=== PATIENT | male | born 1955 | race American Indian/Alaskan Native ===

== ENCOUNTER 2017-08-23 05:53 | Day surgery (SDC) | payer BC ==
[2017-08-19 10:58] LABS: Basophils % (Auto) 0.6 % (0.0-1.8); Eosinophils % (Auto) 1.5 % (0.0-4.3); Hematocrit 41.2 % (35.5-45.6); Hemoglobin 13.6 gm/dl (11.8-15.2); Mean Corpuscular HGB Conc 33 % (32-34); Mean Corpuscular Hemoglobin 29 pg (28-32); Mean Corpuscular Volume 86 fl (84-94); Platelet Count 192 K/mm3 (140-440); Red Blood Count 4.77 M/mm3 (3.65-5.03); Red Cell Distribution Width 14.8 % (13.2-15.2); White Blood Count 6.1 K/mm3 (4.5-11.0)
--- NOTE | 2017-08-19 11:10 | Anesthesia Consultation ---
Anesthesia Consult and Med Hx Date of service: 08/19/17 - Airway Anesthetic Teeth Evaluation: Good ROM Head & Neck: Adequate Mental/Hyoid Distance: Adequate Mallampati Class: Class II Intubation Access Assessment: Probably Good - Pulmonary Exam CTA: Yes - Cardiac Exam Cardiac Exam: RRR - Pre-Operative Health Status ASA Pre-Surgery Classification: ASA2 Proposed Anesthetic Plan: General - Pulmonary Hx Smoking: No Hx Sleep Apnea: No - Cardiovascular System Hx Hypertension: No - Central Nervous System Hx Psychiatric Problems: No - Endocrine Hx Non-Insulin Dependent Diabetes: No - Other Systems Hx Alcohol Use: Yes (occas) Hx Substance Use: No Hx Cancer: No
[~2017-08-23 05:53] MED LIST: MARCAINE 0.5% INFILTRATI ONE; NACL 0.9% IR ONE
[2017-08-23] MEDS ORDERED: ANCEF/STERILE WATER 2 GM/20 ML IV NR (06:23)
[2017-08-23] MEDS ORDERED: NACL BACTERIOSTATIC INFILTRATI ONE (06:44)
[2017-08-23] MEDS ORDERED: VERSED IV NR (07:00)
[2017-08-23] MEDS ORDERED: LACTATED RINGERS 1,000 ML IV SCH (07:00)
[2017-08-23] MEDS ORDERED: XYLOCAINE MPF 2% ONE (07:14)
[2017-08-23] MEDS ORDERED: SUBLIMAZE ONE (07:15)
[2017-08-23] MEDS ORDERED: DIPRIVAN 10 MG/ML IV ONE (07:15)
--- NOTE | 2017-08-23 07:17 | Anesthesia Day of Surgery ---
Anesthesia Day of Surgery - Day of Surgery Patient Examined: Yes Patient H&P Reviewed: Yes Patient is NPO: Yes
[2017-08-23] MEDS ORDERED: ZOFRAN IV PRN (08:00)
[2017-08-23] MEDS ORDERED: MARCAINE 0.5% INFILTRATI ONE (08:00)
[2017-08-23] MEDS ORDERED: DILAUDID IV PRN (08:00)
[2017-08-23] MEDS ORDERED: PERCOCET 5/325 PO PRN (08:00)
[2017-08-23] MEDS ORDERED: NACL 0.9% IR ONE (08:00)
[2017-08-23] MEDS ORDERED: MARCAINE 0.5% 30 ML INFILTRATI ONE (08:14)
[2017-08-23] MEDS ORDERED: XYLOCAINE 1% 20 mL ONE (08:14)
--- NOTE | 2017-08-23 08:48 | Post Anesthesia Evaluation ---
- Post Anesthesia Evaluation Patient Participated: Yes Airway Patent: Yes Stable Respiratory Function: Yes Temp > 96.8F: Yes Pain Manageable: Yes Adequeate Hydration: Yes Anesthesia Complications: No
--- NOTE | 2017-08-23 09:03 | Operative Report ---
SERVICE: Plastic surgery. PREOPERATIVE DIAGNOSIS: Pigmented nevus right forehead/scalp. POSTOPERATIVE DIAGNOSIS: Pigmented nevus right forehead/scalp. PROCEDURE: 1. Excision, benign skin lesions of forehead/scalp measuring 1.5 cm. 2. Complex closure of scalp, 2.5 cm. SURGEON: Nikolai Johnson MD DESCRIPTION OF PROCEDURE: The patient was brought to the operating room and placed on the table in supine position. Following administration of local anesthesia IV sedation, lesion was circumferentially excised and sent to pathology as specimen. Hemostasis controlled using electrocautery. Skin edges were undermined to facilitate closure without undue tension. The ends of the wound were excised to prevent a dog ear deformity. Closure performed in layers using interrupted and running subcuticular 3-0 Monocryl sutures. Mastisol, Steri-Strips, and sterile dressings applied. The patient tolerated the procedure well and returned to recovery room in stable condition. JOB# [id number] FTW/NTS
[2017-08-23 09:53] VITALS: BP 156/70
== END 2017-08-23 10:15 | disposition home or self-care (01) ==
LOC: OR 05:53
PROVIDERS: ATTEND Plastic Surgery
DX: D22.39 Melanocytic nevi of other parts of face (principal); L82.1 Other seborrheic keratosis; Z79.899 Other long term (current) drug therapy
CPT/HCPCS: 11442; 13131; 36415; 85025; 88305; 93005; 93010; J0690; J2250; J2704; J3010; J7120; 88304